=== PATIENT | female | born 1995 | race Caucasian/White ===

== ENCOUNTER 2019-05-20 05:45 | Emergency (ER) | payer BC ==
[~2019-05-20] VITALS: Ht 172.7 cm; Wt 141.5 kg
[2019-05-20] MEDS ORDERED: HYDR-643 PO (05:51)
[2019-05-20] MEDS ORDERED: HYDR-3363 PO (05:51)
[2019-05-20 07:57] LABS: BASO % 0.5 % (0.0-1.0); EOS # 0.1 10^3/uL (0.0-0.5); HEMATOCRIT 42.9 % (36.0-47.0); HEMOGLOBIN 14.3 g/dl (12.0-15.5); LYMPH # 2.8 10^3/uL (1.5-5.0); LYMPH % 35.4 % (24.0-44.0); MEAN CORPUSCULAR HGB CONC 33.3 g/dl (32.0-36.5); MONO # 0.5 10^3/uL (0.0-0.8); MONO % 5.9 % (0.0-5.0); NEUTROPHILS # 4.5 10^3/uL (1.5-8.5); NEUTROPHILS % 57.1 % (36.0-66.0); PLATELET COUNT, AUTOMATED 305 10^3/uL (150-450); RED BLOOD COUNT 5.11 10^6/uL (4.00-5.40); WHITE BLOOD COUNT 7.9 10^3/uL (4.0-10.0)
[2019-05-20 08:16] LABS: ALBUMIN 3.9 GM/DL (3.2-5.2); ALT/SGPT 20 U/L (12-78); AMYLASE 59 U/L (25-115); BILIRUBIN,DIRECT < 0.1 MG/DL (0.0-0.2); BILIRUBIN,TOTAL 0.4 MG/DL (0.2-1.0); BLOOD UREA NITROGEN 11 MG/DL (7-18); CALCIUM LEVEL 8.6 MG/DL (8.5-10.1); CARBON DIOXIDE LEVEL 25 MEQ/L (21-32); CHLORIDE LEVEL 108 MEQ/L (98-107); CREATININE FOR GFR 0.72 MG/DL (0.55-1.30); GLOMERULAR FILTRATION RATE > 60.0 (>60); GLUCOSE, FASTING 101 MG/DL (70-100); LIPASE 122 U/L (73-393); SODIUM LEVEL 140 MEQ/L (136-145)
--- NOTE | 2019-05-20 08:35 | REP ---
Abdominal right recorder ultrasound for right upper quadrant pain and biliary colic: There are multiple mobile gallbladder calculi. There is no gallbladder wall thickening or pericholecystic fluid. There is no intrahepatic or extrahepatic biliary duct dilatation. The common biliary duct measures 3.9 ml in diameter. The hepatic parenchyma is homogeneous and otherwise unremarkable. The visualized pancreatic parenchyma is unremarkable. Portions of the pancreas are obscured by bowel gas. The right kidney measures 11.3 x 4.9 x 3.3 cm and is normal size. There is no right renal calculus or hydronephrosis. There is no right renal solid or cystic mass. There is a right upper quadrant ascites. Impression: Cholelithiasis without ultrasound evidence of acute cholecystitis. No biliary duct dilatation. Electronically Signed by Andres Brock MD 05/20/2019 08:26 A
[2019-05-20] MEDS ORDERED: ONDA4TAB6 PO (09:34)
[2019-05-20 09:44] VITALS: BP 123/80
== END 2019-05-20 09:54 | disposition home or self-care (01) ==
LOC: M ED 05:45
DX: K80.50 Calculus of bile duct without cholangitis or cholecystitis without obstruction (principal); R11.2 Nausea with vomiting, unspecified; Z88.0 Allergy status to penicillin

== ENCOUNTER 2019-11-07 16:11 | Emergency (ER) | payer SELFPAY ==
[~2019-11-07] VITALS: Ht 172.7 cm; Wt 137.2 kg
[~2019-11-07 16:11] MED LIST: HYDR-3363 PO; HYDR-643 PO; ONDA4TAB6 PO
[2019-11-07 17:35] LABS: BASO % 0.5 % (0.0-1.0); EOS # 0.2 10^3/uL (0.0-0.5); EOS % 3.8 % (0.0-3.0); HEMATOCRIT 43.2 % (36.0-47.0); HEMOGLOBIN 14.2 g/dl (12.0-15.5); LYMPH # 2.1 10^3/uL (1.5-5.0); LYMPH % 33.3 % (24.0-44.0); MEAN CORPUSCULAR HEMOGLOBIN 28.1 pg (27.0-33.0); MEAN CORPUSCULAR HGB CONC 32.9 g/dl (32.0-36.5); MEAN CORPUSCULAR VOLUME 85.4 fl (80.0-96.0); MONO # 0.5 10^3/uL (0.0-0.8); MONO % 8.5 % (0.0-5.0); NEUTROPHILS # 3.4 10^3/uL (1.5-8.5); NEUTROPHILS % 53.7 % (36.0-66.0); PLATELET COUNT, AUTOMATED 368 10^3/uL (150-450); RED BLOOD COUNT 5.06 10^6/uL (4.00-5.40); WHITE BLOOD COUNT 6.3 10^3/uL (4.0-10.0)
[2019-11-07 17:57] LABS: ALT/SGPT 32 U/L (12-78); BILIRUBIN,DIRECT 0.1 MG/DL (0.0-0.2); BILIRUBIN,TOTAL 0.4 MG/DL (0.2-1.0); BLOOD UREA NITROGEN 7 MG/DL (7-18); CALCIUM LEVEL 9.7 MG/DL (8.5-10.1); CARBON DIOXIDE LEVEL 28 MEQ/L (21-32); CHLORIDE LEVEL 107 MEQ/L (98-107); GLOMERULAR FILTRATION RATE > 60.0 (>60); GLUCOSE, FASTING 87 MG/DL (70-100); LIPASE 92 U/L (73-393); POTASSIUM SERUM 4.3 MEQ/L (3.5-5.1); SODIUM LEVEL 141 MEQ/L (136-145); TOTAL PROTEIN 7.2 GM/DL (6.4-8.2)
--- NOTE | 2019-11-07 19:17 | REPVR ---
PROCEDURE INFORMATION: Exam: US Abdomen, Limited; Right Upper Quadrant Exam date and time: 11/07/2019 6:50 PM Age: 24 years old Clinical indication: Abdominal pain; Additional info: Ruq pain and a HX of gallstones TECHNIQUE: Imaging protocol: US abdomen. Real time ultrasound with image documentation. Limited exam focused on the right upper quadrant. COMPARISON: GALLBLADDER US 05/20/2019 8:08 AM FINDINGS: Liver: The echogenicity of the liver is within normal limits. No liver lesion is identified from the images obtained. The contour of the liver is smooth. Gallbladder: There is biliary sludge and echogenic foci within the gallbladder, which represent gallstones. No pericholecystic fluid is noted. There is no thickening wall of gallbladder. No sonographic Rosales's sign was reported by the instructional design technologist. Common bile duct: The common bile duct is dilated and measures 10 mm in diameter. There are echogenic foci in the common bile duct, which represent calculi. Pancreas: The visualized portion of the pancreas is unremarkable. The pancreas is partially obscured by gas in the stomach and bowel. Right kidney: The right kidney is normal in appearance and measures 12.2 cm in length. There is no renal cortical thinning. The renal cortical echogenicity is within normal limits. No renal lesion is seen. There is no hydronephrosis. No obvious stones are seen in the renal collecting system. Intraperitoneal space: No free fluid is seen from the images obtained. IMPRESSION: 1. Cholelithiasis. No sonographic evidence for cholecystitis. 2. Dilated common bile duct (10 mm) and choledocholithiasis. Electronically signed by: Juan De La Rosa On 11/07/2019 19:17:17 PM
[2019-11-08 04:08] VITALS: BP 137/82
== END 2019-11-08 04:10 | disposition short-term general hospital (02) ==
LOC: M ED 16:11
DX: K80.50 Calculus of bile duct without cholangitis or cholecystitis without obstruction (principal); K83.8 Other specified diseases of biliary tract; Z88.0 Allergy status to penicillin

== ENCOUNTER 2019-11-30 19:34 | Emergency (ER) | payer MEDICAID, SELFPAY ==
[~2019-11-30 19:34] MED LIST changes: +KETOROLAC 30 MG/ML 1ML VIAL ONE; +ONDANSETRON 4MG/2ML VIAL ONE
[2020-01-02 12:04] LABS: APPEARANCE, URINE HAZY (CLEAR); BACTERIA, URINE AUTO NEGATIVE (NEGATIVE); BILIRUBIN, URINE AUTO NEGATIVE (NEGATIVE); BLOOD, URINE BLOOD NEGATIVE (NEGATIVE); COLOR, URINE YELLOW (YELLOW); GLUCOSE, URINE (UA) AUTO NEGATIVE (NEGATIVE); KETONE, URINE AUTO 1+ mg/dL (NEGATIVE); LEUKOCYTE ESTERASE, URINE AUTO 2+ (NEGATIVE); MUCUS, URINE SMALL (NEGATIVE); NITRITE, URINE AUTO NEGATIVE (NEGATIVE); PROTEIN, URINE AUTO NEGATIVE (NEGATIVE); RBC, URINE AUTO 3 /HPF (0-3); SPECIFIC GRAVITY URINE AUTO 1.021 (1.002-1.035); SQUAMOUS EPITHELIAL CELL UR AU 3 /HPF (0-6); UROBILINOGEN, URINE AUTO 0.2 mg/dL (0.0-2.0); WBC, URINE AUTO 5 /HPF (0-3)
[2020-01-02 14:37] LABS: BASO % 0.2 % (0.0-1.0); EOS # 0.2 10^3/uL (0.0-0.5); EOS % 1.5 % (0.0-3.0); HEMATOCRIT 45.3 % (36.0-47.0); HEMOGLOBIN 14.7 g/dl (12.0-15.5); LYMPH # 2.3 10^3/uL (1.5-5.0); LYMPH % 19.2 % (24.0-44.0); MEAN CORPUSCULAR HEMOGLOBIN 27.9 pg (27.0-33.0); MEAN CORPUSCULAR HGB CONC 32.5 g/dl (32.0-36.5); MONO # 0.8 10^3/uL (0.0-0.8); MONO % 6.3 % (0.0-5.0); NEUTROPHILS # 8.7 10^3/uL (1.5-8.5); NEUTROPHILS % 72.5 % (36.0-66.0); PLATELET COUNT, AUTOMATED 340 10^3/uL (150-450); RED BLOOD COUNT 5.27 10^6/uL (4.00-5.40); WHITE BLOOD COUNT 11.9 10^3/uL (4.0-10.0)
[2020-01-19 23:12] LABS: ALBUMIN 4.4 GM/DL (3.2-5.2); ALT/SGPT 25 IU/L (0-32); BILIRUBIN,TOTAL 0.8 MG/DL (0.2-1.0); BLOOD UREA NITROGEN 6 MG/DL (7-18); CALCIUM LEVEL 9.5 MG/DL (8.5-10.1); CARBON DIOXIDE LEVEL 27 mmol/L (20-29); CHLORIDE LEVEL 104 MEQ/L (98-107); CREATININE FOR GFR 0.63 MG/DL (0.55-1.30); GLOMERULAR FILTRATION RATE > 60.0 (>60); GLUCOSE, FASTING 102 MG/DL (70-100); LIPASE 67 U/L (73-393); POTASSIUM SERUM 4.1 MEQ/L (3.5-5.1); SODIUM LEVEL 138 MEQ/L (136-145); TOTAL PROTEIN 7.5 GM/DL (6.4-8.2)
[2020-01-19 23:13] LABS: HCG, SERUM QUALITATIVE NEGATIVE (NEGATIVE)
== END 2019-11-30 20:14 | disposition home or self-care (01) ==
LOC: M ED 19:34
DX: K80.20 Calculus of gallbladder without cholecystitis without obstruction (principal); E66.9 Obesity, unspecified; K76.0 Fatty (change of) liver, not elsewhere classified; Z88.0 Allergy status to penicillin
CPT/HCPCS: 76705; 80053; 81001; 83690; 84703; 85025; 87086; 96361; 96374; 96375; 99284; J1885; J2405

== ENCOUNTER 2019-12-01 18:10 | Inpatient (IN) | payer MEDICAID, SELFPAY ==
[~2019-12-01 18:10] MED LIST changes: -KETOROLAC 30 MG/ML 1ML VIAL ONE; -ONDANSETRON 4MG/2ML VIAL ONE
[2019-12-01] MEDS ORDERED: MORPHINE 4 MG/ML 1ML VIAL/SYRINGE (J2270) ONE ×2 (18:54→20:41)
[2019-12-01] MEDS ORDERED: MORPHINE 4 MG/ML 1ML VIAL/SYRINGE (J2270) As Ordered ONE ×2 (18:54→20:41)
[2019-12-01] MEDS ORDERED: ONDANSETRON 4MG/2ML VIAL As Ordered ONE (18:54)
[2019-12-01] MEDS ORDERED: ONDANSETRON 4MG/2ML VIAL ONE (18:54)
[2019-12-01] MEDS ORDERED: KETOROLAC 30 MG/ML 1ML VIAL As Ordered ONE (23:16)
[2019-12-01] MEDS ORDERED: KETOROLAC 30 MG/ML 1ML VIAL ONE (23:16)
[2019-12-02] MEDS ORDERED: MORPHINE 4 MG/ML 1ML VIAL/SYRINGE (J2270) As Ordered ONE ×3 (00:32→08:44)
[2019-12-02] MEDS ORDERED: UNASYN 3 GM VIAL As Ordered ONE ×3 (00:35→18:19)
[2019-12-02] MEDS ORDERED: UNASYN 3 GM VIAL ONE (00:35)
[2019-12-02] MEDS ORDERED: ACETAMINOPHEN 325 MG TAB ONE (00:35)
[2019-12-02] MEDS ORDERED: ACETAMINOPHEN 325 MG TAB As Ordered ONE (00:59)
[2019-12-02] MEDS ORDERED: ENOXAPARIN 40MG/0.4ML SYRINGE (J1650 PER 10MG) As Ordered ONE (10:26)
[2019-12-02] MEDS ORDERED: metroNIDAZOLE/NACL 500MG(5MG/ML) 100ML BAG (S0030) ONE ×2 (11:00→21:00)
[2019-12-02] MEDS ORDERED: ONDANSETRON 4MG/2ML VIAL As Ordered ONE ×3 (11:54→13:21)
[2019-12-02] MEDS ORDERED: LIDOCAINE 2% 100MG/5ML SDV (FOR ANES.) As Ordered ONE ×2 (12:08→13:21)
[2019-12-02] MEDS ORDERED: ROCURONIUM BROMIDE 50 MG/5 ML VIAL As Ordered ONE ×3 (12:08→13:30)
[2019-12-02] MEDS ORDERED: KETOROLAC 60MG 2ML VIAL As Ordered ONE ×2 (12:08→13:21)
[2019-12-02] MEDS ORDERED: dexameTHASONE 4 MG/ML 1ML VIAL (J1100 PER 1MG) As Ordered ONE ×2 (12:08→13:21)
[2019-12-02] MEDS ORDERED: propofoL 200 MG/20 ML VIAL As Ordered ONE ×3 (12:08→13:30)
[2019-12-02] MEDS ORDERED: MIDAZOLAM INJ 2MG/2ML VIAL (J2250 PER 1MG) As Ordered ONE ×2 (12:08→13:22)
[2019-12-02] MEDS ORDERED: fentaNYL 100 MCG/2 ML INJECTION (J3010) As Ordered ONE ×2 (12:08→13:23)
[2019-12-02] MEDS ORDERED: BUPIVACAINE HCL 0.25% 30ML VIAL As Ordered ONE (12:43)
[2019-12-02] MEDS ORDERED: LIDOCAINE 1% SDV 30ML VIAL As Ordered ONE (12:43)
[2019-12-02] MEDS ORDERED: UNASYN 1.5 GM VIAL As Ordered ONE (13:00)
[2019-12-02] MEDS ORDERED: HYDROmorphone HCL 2 MG/ML 1ML VIAL (J1170) As Ordered ONE ×2 (13:01→13:23)
[2019-12-02] MEDS ORDERED: METOCLOPRAMIDE INJ 10MG/2ML VIAL (J2765 PER 1) As Ordered ONE (13:21)
[2019-12-02] MEDS ORDERED: SUGAMMADEX SODIUM 500 MG/5 ML VIAL (BRIDION) As Ordered ONE (15:12)
[2019-12-02] MEDS ORDERED: PERCOCET 5MG/325MG TAB As Ordered ONE (18:25)
[2019-12-02] MEDS ORDERED: metroNIDAZOLE/NACL 500MG(5MG/ML) 100ML BAG (S0030) As Ordered ONE (19:26)
[2019-12-03] MEDS ORDERED: KETOROLAC 30 MG/ML 1ML VIAL As Ordered ONE ×4 (00:23→21:54)
[2019-12-03] MEDS ORDERED: UNASYN 3 GM VIAL As Ordered ONE ×4 (00:23→18:39)
[2019-12-03] MEDS ORDERED: PERCOCET 5MG/325MG TAB As Ordered ONE ×4 (00:44→18:39)
[2019-12-03] MEDS ORDERED: metroNIDAZOLE/NACL 500MG(5MG/ML) 100ML BAG (S0030) As Ordered ONE ×3 (03:41→19:30)
[2019-12-03] MEDS ORDERED: ENOXAPARIN 40MG/0.4ML SYRINGE (J1650 PER 10MG) As Ordered ONE (08:59)
[2019-12-04] MEDS ORDERED: UNASYN 3 GM VIAL As Ordered ONE ×2 (01:14→06:17)
[2019-12-04] MEDS ORDERED: PERCOCET 5MG/325MG TAB As Ordered ONE ×3 (01:37→10:37)
[2019-12-04] MEDS ORDERED: metroNIDAZOLE/NACL 500MG(5MG/ML) 100ML BAG (S0030) As Ordered ONE (02:54)
[2019-12-04] MEDS ORDERED: KETOROLAC 30 MG/ML 1ML VIAL As Ordered ONE (04:13)
[2020-01-04 11:45] LABS: AMORPHOUS SEDIMENT MODERATE (NEGATIVE); APPEARANCE, URINE TURBID (CLEAR); BACTERIA, URINE AUTO 1+ (NEGATIVE); BILIRUBIN, URINE AUTO NEGATIVE (NEGATIVE); BLOOD, URINE BLOOD 3+ (NEGATIVE); COLOR, URINE YELLOW (YELLOW); GLUCOSE, URINE (UA) AUTO NEGATIVE (NEGATIVE); KETONE, URINE AUTO 2+ mg/dL (NEGATIVE); LEUKOCYTE ESTERASE, URINE AUTO 2+ (NEGATIVE); MUCUS, URINE MODERATE (NEGATIVE); NITRITE, URINE AUTO NEGATIVE (NEGATIVE); PROTEIN, URINE AUTO 2+ mg/dL (NEGATIVE); RBC, URINE AUTO 137 /HPF (0-3); SQUAMOUS EPITHELIAL CELL UR AU 4 /HPF (0-6); UROBILINOGEN, URINE AUTO 0.2 mg/dL (0.0-2.0); WBC, URINE AUTO TNTC /HPF (0-3)
[2020-01-05 09:00] LABS: BASO % 0.2 % (0.0-1.0); EOS % 0.1 % (0.0-3.0); HEMATOCRIT 39.8 % (36.0-47.0); HEMOGLOBIN 13.3 g/dl (12.0-15.5); LYMPH # 1.1 10^3/uL (1.5-5.0); MEAN CORPUSCULAR HEMOGLOBIN 28.1 pg (27.0-33.0); MEAN CORPUSCULAR HGB CONC 33.4 g/dl (32.0-36.5); MEAN CORPUSCULAR VOLUME 84.1 fl (80.0-96.0); MONO # 1.1 10^3/uL (0.0-0.8); MONO % 5.9 % (0.0-5.0); NEUTROPHILS # 15.9 10^3/uL (1.5-8.5); NEUTROPHILS % 87.5 % (36.0-66.0); PLATELET COUNT, AUTOMATED 332 10^3/uL (150-450); RED BLOOD COUNT 4.73 10^6/uL (4.00-5.40); WHITE BLOOD COUNT 18.1 10^3/uL (4.0-10.0)
[2020-01-16 11:18] LABS: ALBUMIN 4.4 GM/DL (3.2-5.2); ALT/SGPT 31 U/L (12-78); BILIRUBIN,DIRECT 0.3 MG/DL (0.0-0.2); BILIRUBIN,TOTAL 0.9 MG/DL (0.2-1.0); BLOOD UREA NITROGEN 6 MG/DL (7-18); CALCIUM LEVEL 9.3 MG/DL (8.5-10.1); CARBON DIOXIDE LEVEL 24 MEQ/L (21-32); CHLORIDE LEVEL 105 MEQ/L (98-107); CREATININE FOR GFR 0.75 MG/DL (0.55-1.30); GLOMERULAR FILTRATION RATE > 60.0 (>60); GLUCOSE, FASTING 133 MG/DL (70-100); LIPASE 101 U/L (73-393); POTASSIUM SERUM 4.2 MEQ/L (3.5-5.1); SODIUM LEVEL 138 MEQ/L (136-145); TOTAL PROTEIN 7.9 GM/DL (6.4-8.2)
[2020-01-16 11:19] LABS: HCG, SERUM QUALITATIVE NEGATIVE (NEGATIVE)
--- NOTE | 2020-01-23 14:06 | HPE ---
DATE OF ADMISSION: 12/01/2019 CHIEF COMPLAINT: Abdominal pain. HISTORY OF PRESENT ILLNESS: Ms. Crain is a 24-year-old female, otherwise healthy, with moderate obesity, who presented herself to the emergency room on 12/01/2019. The night prior she was also seen in the emergency room for similar complaints. She tells me she has been having about a two day history of epigastric and right upper quadrant discomfort, as well as nausea that happened all of a sudden, prompting the visit the nigh prior. She has a know history of gallstones; and back in October, she was diagnosed with choledocholithiasis, was transferred to [facility] for which she was watched shortly and it appears she passed her biliary stone then. She opted not to have her gallbladder removed at that time due to insurance issues and has been watching her diet. She has been fairly asymptomatic up until the current episode. She was seen by Dr. Ortega in the morning and was actually scheduled to have her gallbladder removed next week. When she got home, she ate and had increased pain and vomiting then she went to the emergency room. She denies any fevers or chills. PAST MEDICAL HISTORY: Just obesity, she denies any sleep apnea, she denies any diabetes or high blood pressure. PAST SURGICAL HISTORY: Tonsillectomy. REVIEW OF SYSTEMS: The patient was, prior to two days ago, well. She does report some 30 pound weight loss, she was voluntarily watching her diet. She reports some nausea. Denies fevers or chills. Denies any chest pain. Denies any shortness of breath on effort. Denies any dysuria. Denies any history of diabetes, sleep apnea, denies any bleeding problem disorder. PHYSICAL EXAMINATION: She is afebrile in the emergency room, otherwise she was hemodynamically stable at the time that I saw her. In the emergency department (ED), she looks mildly uncomfortable. Was able to sit up on the bed, more discomfort when she lays down. Skin is warm and dry. Normocephalic, atraumatic. Anicteric sclerae. Lips appear mildly dry. She has a short supple neck. Lung sounds are clear to auscultation bilaterally without wheezing. Heart: Rate and rhythm are regular without murmurs. Abdomen is obese. Mildly distended but soft. No noticeable herniations. No prior abdominal scars. She is tender over her right upper quadrant area with mild guarding, consistent with Rosales sign. Slight radiation to the midline. She is nontender everywhere else. No significant extremity edema. LABORATORY: Shows white cell count 18,000, hemoglobin 13.3, hematocrit 40, platelet count 332. Her electrolytes and liver function tests were normal. She had an ultrasound finding showing stone at the neck of the gallbladder. She had MRCP done also per my request and this did not demonstrate choledocholithiasis IMPRESSION AND PLAN: This 24-year-old female, moderate obesity with acute cholecystitis. We plan to bring her to the operating for laparoscopic cholecystectomy. She will be placed on antibiotics perioperatively. I will be using Unasyn and metronidazole. Length of stay is 12 hours, possibility of needing a drain or converting to open surgery with laparoscopy discussed with the patient consent has been obtained MTDD
--- NOTE | 2020-01-26 11:00 | RO ---
"DATE OF PROCEDURE: 12/02/2019 PREOPERATIVE DIAGNOSIS: 1. Acute cholecystitis. POSTOPERATIVE: 1. Gangrenous acute cholecystitis. PROCEDURE: Laparoscopic cholecystitis. SURGEON: Dr. Pedro DOVE: Stephanie (PGY1) ANESTHESIA: General anesthesia. ESTIMATED BLOOD LOSS: 100 ml. COMPLICATIONS: None. SPECIMENS: Gallbladder. DRAINS: 19 Josue drain to gallbladder fossa. PROCEDURE NOTE: Ms. Crain is a 24-year-old female morbidly obese admitted to through emergency room with about a four day history of ongoing abdominal pain, has had prior gallbladder problems, attempted passage of a common bile duct stone last month. Had initially opted to not undergo surgery, but was in severe pain, subsequently admitted for cholecystitis. She has been receiving Unasyn 3 gm IV every 6 hours, as well as metronidazole 500 mg IV every 8 hours for the cholecystitis. This was continued perioperatively. She was brought to the operating room, laid supine on the operating table, compression was placed on both lower extremities for deep venous thrombosis (DVT) prophylaxis. General endotracheal anesthesia was started. Her abdomen prepped and draped in the usual sterile fashion. Her left arm was tucked. The surgical time out was performed prior to the start of the surgery. We entered the abdomen about 4 cm above the umbilicus and entry done through small incision and a Veress needle technique used. Intraabdominal placement confirmed with |hanging drop technique. Co2 inflation started to a pressure of 15 mmHg. Using the same incision, a 5 mm port was placed under direct vision of the laparoscope. The patient has a very thick subcutaneous pannus and eventually I would change this to a bariatric port. Once entry to the abdomen was done, the site was inspected for injury, none was found. She was placed in steep Trendelenburg position and right side tilted upwards to further expose the gallbladder. On initial examination, the gallbladder is covered with omentum that is mildly inflamed. I did not immediately see any ascitic fluid; most of the bowel was covered with omentum. Liver is mildly enlarged, but relatively healthy and smooth. The other parts were placed under direct vision including a 10 mm epigastric port and two 5 mm ports along the right subcostal area, one at the midclavicular and one at the anterior axillary line. As mentioned, I converted the supraumbilical trocar to a bariatric port to allow for better use of the laparoscope. I initially used the 5 mm third degree laparoscope, but later on would convert to a 10 mm third degree laparoscope by upsizing the trocar to 12 mm bariatric trocar because we are having problems with adequate visualization for light penetration at the area. The omentum was blunted dissected peeling towards the gallbladder revealing distended necrotic wall of the gallbladder, but no gross perforation, there some hemorrhagic ascites surrounding it and gallbladder pericholecystic wall edema consistent with gangrenous cholecystitis. An aspirating needle was used to decompress the gallbladder with hemorrhagic fluid being removed. The fundus of the gallbladder was grasped and this was elevated superiorly continuing the blunt dissection to free up the gallbladder surrounding omentum and duodenal hepatic ligaments. Mostly did my initial dissection bluntly dissecting the peritoneum circumferentially at about the lower body neck of the gallbladder. The hepatocystic lymph node was pretty prominent. There were adhered swollen adiposities surrounding the area. Seems to tether the duodenum close by, so I initially decided to go to partial top down approach. The peritoneum overlying the fundus was taken down and I went inferiorly to partially free up the dome of the gallbladder to allow me to further retract the fundus superiorly before I expose the septum duct. I continued mostly with the blunt dissection where the laparoscopic peanuts or laparoscopic Kittners going medially and posteriorly, which easy kind of breaks away. The duodenum likewise. The course of the common bile duct seems nearby, so I refrain from using energy in this area. I also dissected the lower body of the cystic plate laterally freeing up the peritoneal attachments from it to further be able to retract the gallbladder. The course of the cystic duct seems to be slightly deviated laterally with the gallbladder being twisted anterolaterally. The infundibulum was more posterior in its location where the cystic duct is more anteriorly and its location is pretty fibrotic and hard. There is also a fairly large maybe a 1.5 cm, 2 cm stone, which makes grabbing the gallbladder difficult. Eventually, I was able to create a posterior window and I slowly went around the posterior wall of the gallbladder bringing this off the cystic plate. Also using the prominent hepatocystic lymph node, I dissected this off the cystic artery from underneath it and followed its course up at the lower body going towards the hepatocystic triangle. The course of the artery was pretty well intimate to the cystic duct with thick fibrotic attachments and eventually was able to get around it. was able to get a critical view of safety as I pretty much dissected the posterior wall of the gallbladder and only the intimately fused cystic duct and artery was coursing to the gallbladder. I have taken the cystic artery up high and slowly peeled this off the cystic duct and was able to circumferentially free up the cystic duct enough to accommodate the 10 mm hemoclips. I massaged any content upwards to the gallbladder and three clips were placed at the cystic duct site and one to the gallbladder site and the cystic duct was divided. The rest of the gallbladder was then dissected off the liver bed, which was pretty fibrotic also. The gallbladder was then detached, delivered through the epigastric ports, which I had enlarged to accommodate the inflamed gallbladder and large stone. Once this was done, the abdomen was thoroughly irrigated. I visualized the clips, likewise the liver bed, which was cauterized some, but the lateral parts of the capsule was not oozing. Once there was adequate hemostasis and clips were noted to be placed, I did not see any evidence of bile leakage. I left a 19 Josue drain. The abdomen was then deflated. The two 12 mm and 10 mm ports were closed with 1Vicryl using Kevon-Inocencio device. All skin incisions closed with 4-0 monochrome subcuticular sutures. The drain was secured to the skin. The patient was promptly awaken, extubated and brought to the recovery room in stable condition. SAILAJA"
[2020-01-29 06:48] LABS: BASO % 0.2 % (0.0-1.0); EOS % 0.1 % (0.0-3.0); HEMATOCRIT 45.3 % (36.0-47.0); HEMOGLOBIN 14.8 g/dl (12.0-15.5); LYMPH # 1.4 10^3/uL (1.5-5.0); LYMPH % 9.6 % (24.0-44.0); MEAN CORPUSCULAR HEMOGLOBIN 28.3 pg (27.0-33.0); MEAN CORPUSCULAR HGB CONC 32.7 g/dl (32.0-36.5); MEAN CORPUSCULAR VOLUME 86.6 fl (80.0-96.0); MONO # 1.5 10^3/uL (0.0-0.8); NEUTROPHILS # 11.8 10^3/uL (1.5-8.5); NEUTROPHILS % 79.7 % (36.0-66.0); PLATELET COUNT, AUTOMATED 338 10^3/uL (150-450); RED BLOOD COUNT 5.23 10^6/uL (4.00-5.40); WHITE BLOOD COUNT 14.8 10^3/uL (4.0-10.0)
[2020-01-29 18:14] LABS: BASO % 0.2 % (0.0-1.0); EOS % 0.1 % (0.0-3.0); HEMATOCRIT 37.8 % (36.0-47.0); HEMOGLOBIN 12.3 g/dl (12.0-15.5); LYMPH # 1.5 10^3/uL (1.5-5.0); LYMPH % 12.2 % (24.0-44.0); MEAN CORPUSCULAR HEMOGLOBIN 28.1 pg (27.0-33.0); MEAN CORPUSCULAR HGB CONC 32.5 g/dl (32.0-36.5); MEAN CORPUSCULAR VOLUME 86.3 fl (80.0-96.0); MONO # 1.1 10^3/uL (0.0-0.8); MONO % 9.1 % (0.0-5.0); NEUTROPHILS # 9.8 10^3/uL (1.5-8.5); NEUTROPHILS % 78.1 % (36.0-66.0); PLATELET COUNT, AUTOMATED 314 10^3/uL (150-450); RED BLOOD COUNT 4.38 10^6/uL (4.00-5.40); WHITE BLOOD COUNT 12.6 10^3/uL (4.0-10.0)
[2020-02-14 10:13] LABS: BASO % 0.2 % (0.0-1.0); EOS # 0.1 10^3/uL (0.0-0.5); EOS % 1.5 % (0.0-3.0); HEMATOCRIT 36.7 % (36.0-47.0); HEMOGLOBIN 11.9 g/dl (12.0-15.5); LYMPH # 2.2 10^3/uL (1.5-5.0); LYMPH % 26.3 % (24.0-44.0); MEAN CORPUSCULAR HEMOGLOBIN 28.1 pg (27.0-33.0); MEAN CORPUSCULAR HGB CONC 32.4 g/dl (32.0-36.5); MEAN CORPUSCULAR VOLUME 86.6 fl (80.0-96.0); MONO # 0.6 10^3/uL (0.0-0.8); MONO % 6.7 % (0.0-5.0); NEUTROPHILS # 5.4 10^3/uL (1.5-8.5); NEUTROPHILS % 64.9 % (36.0-66.0); PLATELET COUNT, AUTOMATED 326 10^3/uL (150-450); RED BLOOD COUNT 4.24 10^6/uL (4.00-5.40); WHITE BLOOD COUNT 8.3 10^3/uL (4.0-10.0)
[2020-02-19 08:18] LABS: ALBUMIN 2.8 GM/DL (3.2-5.2); ALT/SGPT 50 U/L (12-78); BILIRUBIN,TOTAL 0.5 MG/DL (0.2-1.0); BLOOD UREA NITROGEN 12 MG/DL (7-18); CALCIUM LEVEL 8.2 MG/DL (8.5-10.1); CARBON DIOXIDE LEVEL 30 MEQ/L (21-32); CHLORIDE LEVEL 104 MEQ/L (98-107); CREATININE FOR GFR 0.54 MG/DL (0.55-1.30); GLOMERULAR FILTRATION RATE > 60.0 (>60); GLUCOSE, FASTING 93 MG/DL (70-100); POTASSIUM SERUM 3.4 MEQ/L (3.5-5.1); SODIUM LEVEL 139 MEQ/L (136-145); TOTAL PROTEIN 5.8 GM/DL (6.4-8.2)
[2020-02-26 05:00] LABS: ALBUMIN 3.5 GM/DL (3.2-5.2); ALT/SGPT 51 U/L (12-78); BILIRUBIN,TOTAL 1.4 MG/DL (0.2-1.0); BLOOD UREA NITROGEN 6 MG/DL (7-18); CALCIUM LEVEL 8.9 MG/DL (8.5-10.1); CARBON DIOXIDE LEVEL 27 MEQ/L (21-32); CHLORIDE LEVEL 106 MEQ/L (98-107); CREATININE FOR GFR 0.76 MG/DL (0.55-1.30); GLOMERULAR FILTRATION RATE > 60.0 (>60); GLUCOSE, FASTING 149 MG/DL (70-100); POTASSIUM SERUM 3.8 MEQ/L (3.5-5.1); SODIUM LEVEL 140 MEQ/L (136-145); TOTAL PROTEIN 6.9 GM/DL (6.4-8.2)
[2020-02-26 11:12] LABS: ALBUMIN 2.9 GM/DL (3.2-5.2); ALT/SGPT 59 U/L (12-78); BILIRUBIN,TOTAL 0.8 MG/DL (0.2-1.0); BLOOD UREA NITROGEN 10 MG/DL (7-18); CALCIUM LEVEL 8.2 MG/DL (8.5-10.1); CARBON DIOXIDE LEVEL 29 MEQ/L (21-32); CHLORIDE LEVEL 106 MEQ/L (98-107); CREATININE FOR GFR 0.59 MG/DL (0.55-1.30); GLOMERULAR FILTRATION RATE > 60.0 (>60); GLUCOSE, FASTING 108 MG/DL (70-100); POTASSIUM SERUM 3.8 MEQ/L (3.5-5.1); SODIUM LEVEL 140 MEQ/L (136-145); TOTAL PROTEIN 5.9 GM/DL (6.4-8.2)
== END 2019-12-03 10:15 | disposition home or self-care (01) | DRG 263 ==
LOC: M ED 18:10 → M MS5PR 22:05
PROVIDERS: ADMIT Surgery; ATTEND Surgery
PROC: 0FT44ZZ Resection of Gallbladder, Percutaneous Endoscopic Approach (ICD-10-PCS; principal; 2019-12-02)
DX: K81.0 Acute cholecystitis (principal); E66.9 Obesity, unspecified

== ENCOUNTER → 2020-12-06 | Outpatient (CLI) | payer OTHER ==
[~2020-12-06] MED LIST changes: +MAXA10TA14
[2020-12-06 13:37] LABS: BASO % 0.5 % (0.0-1.0); EOS # 0.1 10^3/uL (0.0-0.5); EOS % 2.2 % (0.0-3.0); HEMATOCRIT 43.5 % (36.0-47.0); HEMOGLOBIN 14.3 g/dl (12.0-15.5); LYMPH % 32.8 % (24.0-44.0); MEAN CORPUSCULAR HEMOGLOBIN 28.3 pg (27.0-33.0); MEAN CORPUSCULAR HGB CONC 32.9 g/dl (32.0-36.5); MEAN CORPUSCULAR VOLUME 86.1 fl (80.0-96.0); MONO # 0.4 10^3/uL (0.0-0.8); MONO % 6.2 % (2.0-8.0); NEUTROPHILS # 3.5 10^3/uL (1.5-8.5); NEUTROPHILS % 58.1 % (36.0-66.0); PLATELET COUNT, AUTOMATED 378 10^3/uL (150-450); RED BLOOD COUNT 5.05 10^6/uL (4.00-5.40)
[2020-12-06 14:02] LABS: ALT/SGPT 33 U/L (12-78); BILIRUBIN,TOTAL 0.5 MG/DL (0.2-1.0); BLOOD UREA NITROGEN 10 MG/DL (7-18); CALCIUM LEVEL 9.2 MG/DL (8.5-10.1); CARBON DIOXIDE LEVEL 27 MEQ/L (21-32); CHLORIDE LEVEL 110 MEQ/L (98-107); CREATININE FOR GFR 0.59 MG/DL (0.55-1.30); GLOMERULAR FILTRATION RATE > 60.0 (>60); GLUCOSE, FASTING 99 MG/DL (70-100); POTASSIUM SERUM 4.3 MEQ/L (3.5-5.1); RHEUMATOID FACTOR QUANT < 10.0 IU/ML (<15.0); SODIUM LEVEL 140 MEQ/L (136-145); THYROXINE (T4) 9.6 UG/DL (4.5-12.0); TOTAL PROTEIN 6.6 GM/DL (6.4-8.2)
[2020-12-06 14:06] LABS: THYROGLOBULIN ANTIBODY < 15.0 U/ML (<60.0); THYROID PEROXIDASE ANTIBODY 236.8 U/ML (<60.0)
[2020-12-06 14:54] LABS: ERYTHROCYTE SEDIMENTATION RATE 4 mm/hr (0-20)
[2020-12-11 18:10] LABS: ANTINUCLEAR ANTIBODIES DIRECT Negative (Negative); IGE RECEPTOR ABY 1 4.9 (<10); TRYPTASE 6.6 ug/L (2.2-13.2)
== END ==
LOC: M LABDRWAD 09:55
PROVIDERS: ATTEND Allergy & Immunology Allergy
DX: L50.1 Idiopathic urticaria (principal); L50.3 Dermatographic urticaria

== ENCOUNTER 2020-12-08 12:37 | Emergency (ER) | payer OTHER ==
[~2020-12-08] VITALS: Ht 170.2 cm; Wt 139.5 kg
[~2020-12-08 12:37] MED LIST changes: -MAXA10TA14
[2020-12-08] MEDS ORDERED: MAXA10TA14 (12:46)
[2020-12-08] MEDS ORDERED: METOCLOPRAMIDE INJ 10MG/2ML VIAL (J2765 PER 1) IV ONE (14:35)
[2020-12-08] MEDS ORDERED: ACETAMINOPHEN 500 MG TAB PO ONE (14:35)
[2020-12-08] MEDS ORDERED: NS 1,000 ML IV ONE (14:35)
[2020-12-08 15:29] LABS: APPEARANCE, URINE HAZY (CLEAR); BACTERIA, URINE AUTO NEGATIVE (NEGATIVE); BILIRUBIN, URINE AUTO NEGATIVE (NEGATIVE); BLOOD, URINE BLOOD 3+ (NEGATIVE); COLOR, URINE YELLOW (YELLOW); GLUCOSE, URINE (UA) AUTO NEGATIVE (NEGATIVE); KETONE, URINE AUTO NEGATIVE (NEGATIVE); LEUKOCYTE ESTERASE, URINE AUTO 1+ (NEGATIVE); MUCUS, URINE SMALL (NEGATIVE); NITRITE, URINE AUTO NEGATIVE (NEGATIVE); PROTEIN, URINE AUTO NEGATIVE (NEGATIVE); RBC, URINE AUTO 41 /HPF (0-3); SPECIFIC GRAVITY URINE AUTO 1.021 (1.002-1.035); SQUAMOUS EPITHELIAL CELL UR AU 6 /HPF (0-6); UROBILINOGEN, URINE AUTO 0.2 mg/dL (0.0-2.0); WBC, URINE AUTO 7 /HPF (0-3)
[2020-12-08 15:30] LABS: BASO % 0.7 % (0.0-1.0); EOS # 0.1 10^3/uL (0.0-0.5); EOS % 1.4 % (0.0-3.0); HEMATOCRIT 42.7 % (36.0-47.0); LYMPH # 2.4 10^3/uL (1.5-5.0); LYMPH % 40.8 % (24.0-44.0); MEAN CORPUSCULAR HEMOGLOBIN 27.9 pg (27.0-33.0); MEAN CORPUSCULAR HGB CONC 32.8 g/dl (32.0-36.5); MEAN CORPUSCULAR VOLUME 85.1 fl (80.0-96.0); MONO # 0.3 10^3/uL (0.0-0.8); MONO % 5.9 % (2.0-8.0); PLATELET COUNT, AUTOMATED 175 10^3/uL (150-450); RED BLOOD COUNT 5.02 10^6/uL (4.00-5.40); WHITE BLOOD COUNT 5.8 10^3/uL (4.0-10.0)
[2020-12-08 15:41] LABS: BLOOD UREA NITROGEN 10 MG/DL (7-18); CARBON DIOXIDE LEVEL 16 MEQ/L (21-32); CHLORIDE LEVEL 120 MEQ/L (98-107); CREATININE FOR GFR 0.41 MG/DL (0.55-1.30); GLOMERULAR FILTRATION RATE > 60.0 (>60); GLUCOSE, FASTING 80 MG/DL (70-100); POTASSIUM SERUM 3.5 MEQ/L (3.5-5.1); SODIUM LEVEL 143 MEQ/L (136-145)
[2020-12-08 16:03] LABS: RSV AMPLIFICATION NEGATIVE (NEGATIVE)
[2020-12-08 16:03] LABS: ERYTHROCYTE SEDIMENTATION RATE 2 mm/hr (0-20)
--- NOTE | 2020-12-08 16:12 | REP ---
INDICATION: headache, left visual disturbances, fam hx MS COMPARISON: None. TECHNIQUE: Axial noncontrast images from the skull base to the vertex with coronal reformations. This CT examination was performed using the following dose reduction techniques: Automated exposure control, adjustment of mA and/or kv according to the patient's size, and use of iterative reconstruction technique. FINDINGS: The ventricles, sulci, and cisterns are normal in position and appearance. Prather-white differentiation is maintained. No acute intracranial hemorrhage, mass/mass effect, pathology or trauma/injury. No evidence for acute infarction. No extra-axial fluid collection. Calvarium is intact. Paranasal sinuses and mastoid air cells are clear. IMPRESSION: Normal noncontrast head CT. No evidence for acute intracranial pathology or trauma/injury. <Electronically signed by Moe Villegas > 12/08/20 [id number]
[2020-12-08] MEDS ORDERED: KETOROLAC 30 MG/ML 1ML VIAL IV ONE (16:20)
[2020-12-08 18:13] VITALS: BP 126/65
== END 2020-12-08 19:02 | disposition home or self-care (01) ==
LOC: M ED 12:37
DX: H53.8 Other visual disturbances (principal); G43.909 Migraine, unspecified, not intractable, without status migrainosus; F41.9 Anxiety disorder, unspecified; F32.9 Major depressive disorder, single episode, unspecified; Z88.0 Allergy status to penicillin
CPT/HCPCS: 36415; 70450; 80048; 81001; 84702; 85025; 85652; 86140; 87631; 96361; 96374; 96375; 99284; J1885; J2765

== ENCOUNTER → 2020-12-13 | Outpatient (CLI) | payer OTHER ==
[~2020-12-13] MED LIST changes: +MAXA10TA14
--- NOTE | 2020-12-13 18:37 | REPVR ---
PROCEDURE INFORMATION: Exam: MR Head Without Contrast Exam date and time: 12/13/2020 4:54 PM Age: 25 years old Clinical indication: Pain; Headache; With aura; Does not respond to medication; With migrainosus (>72 hrs & severe); Patient HX: Migraine w/ visual aura TECHNIQUE: Imaging protocol: MR of the head without contrast. COMPARISON: CT Head without contrast 12/08/2020 3:59 PM FINDINGS: Brain: There is no restricted diffusion to suggest acute infarction. No mass. No demyelinating plaques. No acute intracranial hemorrhage or prior microhemorrhages. Cerebral ventricles: No ventricular enlargement. Bones/joints: Unremarkable. Paranasal sinuses: There is a mucous retention cyst in the right maxillary antrum.The remainder of the paranasal sinuses appear clear. Mastoid air cells: Normal as visualized. No mastoid effusion. Orbital cavity: Unremarkable. Soft tissues: Unremarkable. Other vasculature: Flow is seen in the major intracerebral arteries. IMPRESSION: No acute findings. Electronically signed by: Jennifer Her On 12/13/2020 18:37:15 PM
== END ==
LOC: M RAD 13:52
PROVIDERS: ATTEND Physician Assistant Medical
DX: G43.109 Migraine with aura, not intractable, without status migrainosus (principal)

== ENCOUNTER → 2020-12-27 | Outpatient (CLI) | payer OTHER ==
--- NOTE | 2020-12-27 15:29 | REP ---
INDICATION: THYROIDITIS. COMPARISON: None. TECHNIQUE: Real-time sonographic evaluation of thyroid performed. FINDINGS: Right lobe of the thyroid measures 5.7 x 1.6 x 1.5 cm and left lobe 5.2 x 1.5 x 1.2 cm. 3 tiny hypoechoic nodules are scattered throughout each lobe, maximum diameter on the right is 3 mm and on the left 2 mm. No other abnormality is seen. IMPRESSION: There are 3 tiny hypoechoic nodules in each lobe measuring up to 3 mm in diameter. These are not felt to be clinically significant. <Electronically signed by Andres Prather > 12/27/20 [id number]
== END ==
LOC: M RAD 14:46
PROVIDERS: ATTEND Physician Assistant Medical
DX: E06.9 Thyroiditis, unspecified (principal); E04.2 Nontoxic multinodular goiter

== ENCOUNTER → 2021-04-04 | Outpatient (REF) | payer OTHER | LOC: M SFHCADAM 16:11 | PROVIDERS: ATTEND Physician Assistant Medical | DX: R51.9 Headache, unspecified (principal); J34.89 Other specified disorders of nose and nasal sinuses ==

== ENCOUNTER 2021-05-01 23:21 | Emergency (ER) | payer OTHER ==
[~2021-05-01] VITALS: Ht 172.7 cm; Wt 135.4 kg
[2021-05-01] MEDS ORDERED: RIZA5TAB2 (23:40)
[2021-05-02] MEDS ORDERED: NS 1,000 ML IV ONE (00:10)
[2021-05-02] MEDS ORDERED: KETOROLAC 30 MG/ML 1ML VIAL IV ONE (00:10)
[2021-05-02] MEDS ORDERED: ONDANSETRON 4MG/2ML VIAL IV ONE (00:10)
[2021-05-02 01:05] LABS: BASO # 0.1 10^3/uL (0.0-0.2); BASO % 0.5 % (0.0-1.0); EOS # 0.1 10^3/uL (0.0-0.5); HEMATOCRIT 43.1 % (36.0-47.0); HEMOGLOBIN 14.1 g/dl (12.0-15.5); LYMPH # 3.7 10^3/uL (1.5-5.0); LYMPH % 37.1 % (24.0-44.0); MEAN CORPUSCULAR HGB CONC 32.7 g/dl (32.0-36.5); MEAN CORPUSCULAR VOLUME 85.7 fl (80.0-96.0); MONO # 0.6 10^3/uL (0.0-0.8); MONO % 6.3 % (2.0-8.0); NEUTROPHILS # 5.4 10^3/uL (1.5-8.5); NEUTROPHILS % 54.8 % (36.0-66.0); PLATELET COUNT, AUTOMATED 308 10^3/uL (150-450); RED BLOOD COUNT 5.03 10^6/uL (4.00-5.40); WHITE BLOOD COUNT 9.9 10^3/uL (4.0-10.0)
[2021-05-02] MEDS ORDERED: NORCO, ANEXSIA 5/325MG TABLET (HYDROcodone/ACETAMINOPHEN) PO ONE (01:20)
[2021-05-02] MEDS ORDERED: METOCLOPRAMIDE INJ 10MG/2ML VIAL (J2765 PER 1) IV ONE (01:20)
[2021-05-02 01:32] LABS: ALBUMIN 4.1 GM/DL (3.2-5.2); ALT/SGPT 42 U/L (12-78); BILIRUBIN,DIRECT < 0.1 MG/DL (0.0-0.2); BILIRUBIN,TOTAL 0.3 MG/DL (0.2-1.0); BLOOD UREA NITROGEN 10 MG/DL (7-18); CALCIUM LEVEL 9.2 MG/DL (8.5-10.1); CARBON DIOXIDE LEVEL 26 MEQ/L (21-32); CHLORIDE LEVEL 107 MEQ/L (98-107); GLOMERULAR FILTRATION RATE > 60.0 (>60); GLUCOSE, FASTING 115 MG/DL (70-100); LIPASE 107 U/L (73-393); SODIUM LEVEL 140 MEQ/L (136-145); TOTAL PROTEIN 7.2 GM/DL (6.4-8.2)
[2021-05-02] MEDS ORDERED: TAMSULOSIN 0.4 MG CAP PO ONE (01:40)
[2021-05-02] MEDS ORDERED: KETO10TAB PO (01:46)
[2021-05-02] MEDS ORDERED: ONDA4TAB6 PO (01:46)
[2021-05-02] MEDS ORDERED: FLOM0.4C39 PO (01:46)
[2021-05-02 01:50] VITALS: BP 144/66
== END 2021-05-02 02:00 | disposition home or self-care (01) ==
LOC: M ED 23:21
DX: N21.1 Calculus in urethra (principal); Z79.899 Other long term (current) drug therapy; Z88.0 Allergy status to penicillin
CPT/HCPCS: 74176; 80048; 80076; 81001; 83690; 84702; 85025; 96374; 96375; 99284; J1885; J2405; J2765

== ENCOUNTER → 2021-11-19 | Outpatient (CLI) | payer OTHER ==
[~2021-11-19] MED LIST changes: +FLOM0.4C39 PO; +KETO10TAB PO; +RIZA5TAB2
== END ==
LOC: M RAD 13:32
PROVIDERS: ATTEND Obstetrics & Gynecology
DX: N94.4 Primary dysmenorrhea (principal)

== ENCOUNTER → 2021-11-22 | Outpatient (CLI) | payer OTHER ==
[2021-11-23 15:00] LABS: FREE T4 1.06 NG/DL (0.76-1.46); THYROID STIMULATING HORMONE 3.1 uIU/ML (0.358-3.740)
== END ==
LOC: M WUC 15:02
PROVIDERS: ATTEND Nurse Practitioner Family
DX: R94.6 Abnormal results of thyroid function studies (principal)

== ENCOUNTER → 2022-08-05 | Outpatient (REF) | payer OTHER ==
[~2022-08-05] MED LIST changes: -MAXA10TA14; +RIZA10TA64
[2022-08-05 21:45] LABS: APPEARANCE, URINE HAZY (CLEAR); BACTERIA, URINE AUTO NEGATIVE (NEGATIVE); BILIRUBIN, URINE AUTO NEGATIVE (NEGATIVE); BLOOD, URINE BLOOD 1+ (NEGATIVE); COLOR, URINE YELLOW (YELLOW); GLUCOSE, URINE (UA) AUTO NEGATIVE (NEGATIVE); KETONE, URINE AUTO NEGATIVE (NEGATIVE); LEUKOCYTE ESTERASE, URINE AUTO 2+ (NEGATIVE); NITRITE, URINE AUTO NEGATIVE (NEGATIVE); PROTEIN, URINE AUTO NEGATIVE (NEGATIVE); RBC, URINE AUTO 1 /HPF (0-3); SQUAMOUS EPITHELIAL CELL UR AU 2 /HPF (0-6); UROBILINOGEN, URINE AUTO 0.2 mg/dL (0.0-2.0); WBC, URINE AUTO 12 /HPF (0-3)
== END ==
LOC: M LAB REF 21:00
PROVIDERS: ATTEND Physician Assistant Medical
DX: N39.0 Urinary tract infection, site not specified (principal)

== ENCOUNTER → 2022-09-12 | Outpatient (REF) | payer OTHER ==
[2022-09-12 21:30] LABS: APPEARANCE, URINE CLOUDY (CLEAR); BACTERIA, URINE AUTO 1+ (NEGATIVE); BILIRUBIN, URINE AUTO NEGATIVE (NEGATIVE); BLOOD, URINE BLOOD NEGATIVE (NEGATIVE); COLOR, URINE YELLOW (YELLOW); GLUCOSE, URINE (UA) AUTO NEGATIVE (NEGATIVE); KETONE, URINE AUTO NEGATIVE (NEGATIVE); LEUKOCYTE ESTERASE, URINE AUTO 3+ (NEGATIVE); MUCUS, URINE MODERATE (NEGATIVE); NITRITE, URINE AUTO NEGATIVE (NEGATIVE); PROTEIN, URINE AUTO 1+ mg/dL (NEGATIVE); RBC, URINE AUTO 2 /HPF (0-3); SQUAMOUS EPITHELIAL CELL UR AU 9 /HPF (0-6); UROBILINOGEN, URINE AUTO 0.2 mg/dL (0.0-2.0); WBC, URINE AUTO 30 /HPF (0-3)
== END ==
LOC: M LAB REF 20:55
PROVIDERS: ATTEND Physician Assistant
DX: N39.0 Urinary tract infection, site not specified (principal)

== ENCOUNTER 2022-09-29 07:00 | Emergency (ER) | payer OTHER ==
[~2022-09-29] VITALS: Ht 172.7 cm; Wt 149.3 kg
[2022-09-29] MEDS ORDERED: BENZONATATE 100MG CAPSULE PO ONE (08:00)
[2022-09-29] MEDS ORDERED: NS 1,000 ML IV ONE (08:00)
[2022-09-29] MEDS ORDERED: ALBUTEROL SULFATE 2.5MG/0.5ML INH NEB SOLN NEB ONE (08:00)
[2022-09-29] MEDS ORDERED: KETOROLAC 30 MG/ML 1ML VIAL IV ONE (08:00)
[2022-09-29] MEDS ORDERED: METOCLOPRAMIDE INJ 10MG/2ML VIAL IV ONE (08:00)
[2022-09-29 08:12] LABS: RSV AMPLIFICATION NEGATIVE (NEGATIVE)
[2022-09-29 08:51] LABS: BASO % 0.3 % (0.0-1.0); EOS % 0.3 % (0.0-3.0); HEMATOCRIT 44.4 % (36.0-47.0); HEMOGLOBIN 14.3 g/dl (12.0-15.5); LYMPH # 0.8 10^3/uL (1.5-5.0); LYMPH % 13.3 % (24.0-44.0); MEAN CORPUSCULAR HEMOGLOBIN 27.9 pg (27.0-33.0); MEAN CORPUSCULAR HGB CONC 32.2 g/dl (32.0-36.5); MEAN CORPUSCULAR VOLUME 86.5 fl (80.0-96.0); MONO # 0.5 10^3/uL (0.0-0.8); MONO % 7.8 % (2.0-8.0); NEUTROPHILS # 4.6 10^3/uL (1.5-8.5); NEUTROPHILS % 78.1 % (36.0-66.0); PLATELET COUNT, AUTOMATED 279 10^3/uL (150-450); RED BLOOD COUNT 5.13 10^6/uL (4.00-5.40); WHITE BLOOD COUNT 5.9 10^3/uL (4.0-10.0)
[2022-09-29 09:08] LABS: ERYTHROCYTE SEDIMENTATION RATE 16 mm/hr (0-20)
[2022-09-29] MEDS ORDERED: MUCI1TAB16 PO (10:20)
[2022-09-29] MEDS ORDERED: MACR100C43 PO (10:20)
[2022-09-29] MEDS ORDERED: ALBU8.5H INH (10:20)
[2022-09-29] MEDS ORDERED: BENZ200C70 PO (10:20)
[2022-09-29 10:26] VITALS: BP 123/74; TEMP 99.3; O2SAT 97
[2022-09-29 12:45] LABS: GC DNA AMPLIFICATION NEGATIVE (NEGATIVE)
== END 2022-09-29 10:47 | disposition home or self-care (01) ==
LOC: M ED 07:00
DX: R05.9 Cough, unspecified (principal); R51.9 Headache, unspecified; R30.0 Dysuria; Z79.899 Other long term (current) drug therapy; Z88.0 Allergy status to penicillin
CPT/HCPCS: 71046; 80047; 81000; 81015; 83605; 84702; 85025; 85652; 86140; 87086; 87631; 87661; 87810; 87850; 94640; 96361; 96374; 96375; 99284; J1885; J2765

== ENCOUNTER → 2022-12-23 | Outpatient (CLI) | payer OTHER ==
[~2022-12-23] MED LIST changes: +ALBU8.5H INH; +BENZ200C70 PO; +MACR100C43 PO; +MUCI1TAB16 PO
== END ==
LOC: M WHC 06:47
PROVIDERS: ATTEND Nurse Practitioner Family
DX: N92.0 Excessive and frequent menstruation with regular cycle (principal)

== ENCOUNTER 2023-05-22 20:18 | Emergency (ER) | payer OTHER ==
[~2023-05-22] VITALS: Ht 171.4 cm; Wt 154.9 kg
[2023-05-22] MEDS ORDERED: KETOROLAC 30 MG/ML 1ML VIAL IV ONE (21:05)
[2023-05-22] MEDS ORDERED: ONDANSETRON 4MG 2ML VIAL IV ONE (21:05)
[2023-05-22 21:44] LABS: BASO % 0.3 % (0.0-1.0); EOS # 0.1 10^3/uL (0.0-0.5); EOS % 0.7 % (0.0-3.0); HEMOGLOBIN 14.8 g/dl (12.0-15.5); LYMPH # 1.8 10^3/uL (1.5-5.0); LYMPH % 25.6 % (24.0-44.0); MEAN CORPUSCULAR HEMOGLOBIN 28.6 pg (27.0-33.0); MEAN CORPUSCULAR HGB CONC 33.6 g/dl (32.0-36.5); MEAN CORPUSCULAR VOLUME 84.9 fl (80.0-96.0); MONO # 0.7 10^3/uL (0.0-0.8); MONO % 9.5 % (2.0-8.0); NEUTROPHILS # 4.6 10^3/uL (1.5-8.5); NEUTROPHILS % 63.8 % (36.0-66.0); PLATELET COUNT, AUTOMATED 304 10^3/uL (150-450); RED BLOOD COUNT 5.18 10^6/uL (4.00-5.40); WHITE BLOOD COUNT 7.1 10^3/uL (4.0-10.0)
[2023-05-22 22:08] LABS: ALBUMIN 3.9 G/DL (3.2-5.2); BILIRUBIN,DIRECT 0.3 MG/DL (<0.4); BILIRUBIN,TOTAL 0.8 MG/DL (0.3-1.2)
[2023-05-22 23:19] LABS: RSV AMPLIFICATION NEGATIVE (NEGATIVE)
[2023-05-22] MEDS ORDERED: ONDA4TAB6 PO (23:51)
[2023-05-23 00:20] VITALS: BP 130/77; TEMP 97.3; O2SAT 97
== END 2023-05-23 00:29 | disposition home or self-care (01) ==
LOC: M ED 05-23
DX: R11.2 Nausea with vomiting, unspecified (principal); R19.7 Diarrhea, unspecified; Z87.442 Personal history of urinary calculi; Z88.0 Allergy status to penicillin; Z79.83 Long term (current) use of bisphosphonates; Z79.811 Long term (current) use of aromatase inhibitors; Z79.899 Other long term (current) drug therapy
CPT/HCPCS: 74176; 80047; 80076; 81001; 83690; 84702; 85025; 87631; 96374; 99284; J1885; J2405

== ENCOUNTER → 2023-08-18 | Outpatient (CLI) | payer OTHER | LOC: M ADAMS 09:36 | PROVIDERS: ATTEND Ophthalmology Retina Specialist | DX: H30.92 Unspecified chorioretinal inflammation, left eye (principal) ==

== ENCOUNTER → 2023-08-18 | Outpatient (REF) | payer OTHER ==
[2023-08-18 13:27] LABS: BASO % 0.5 % (0.0-1.0); EOS # 0.1 10^3/uL (0.0-0.5); EOS % 1.5 % (0.0-3.0); HEMATOCRIT 44.5 % (36.0-47.0); HEMOGLOBIN 14.6 g/dl (12.0-15.5); LYMPH # 1.9 10^3/uL (1.5-5.0); LYMPH % 31.2 % (24.0-44.0); MEAN CORPUSCULAR HEMOGLOBIN 28.4 pg (27.0-33.0); MEAN CORPUSCULAR HGB CONC 32.8 g/dl (32.0-36.5); MEAN CORPUSCULAR VOLUME 86.6 fl (80.0-96.0); MONO # 0.4 10^3/uL (0.0-0.8); MONO % 6.7 % (2.0-8.0); NEUTROPHILS # 3.7 10^3/uL (1.5-8.5); NEUTROPHILS % 59.9 % (36.0-66.0); PLATELET COUNT, AUTOMATED 325 10^3/uL (150-450); RED BLOOD COUNT 5.14 10^6/uL (4.00-5.40); WHITE BLOOD COUNT 6.1 10^3/uL (4.0-10.0)
[2023-08-18 13:47] LABS: C REACTIVE PROTEIN QUANTITATIV < 0.40 MG/DL (<1.0)
[2023-08-18 13:49] LABS: ALBUMIN 3.7 G/DL (3.2-5.2); ALKALINE PHOSPHATASE 53 U/L (46-116); ALT/SGPT 37 U/L (7.0-40); AST/SGOT 25 U/L (<34); BILIRUBIN,TOTAL 0.6 MG/DL (0.3-1.2); BLOOD UREA NITROGEN 7 MG/DL (9-23); CALCIUM LEVEL 9.2 MG/DL (8.5-10.1); CARBON DIOXIDE LEVEL 25 MMOL/L (20-31); CHLORIDE LEVEL 108 MMOL/L (98-107); CREATININE FOR GFR 0.59 MG/DL (0.55-1.30); GLOMERULAR FILTRATION RATE > 60.0 (>60); GLUCOSE, FASTING 105 MG/DL (60-100); POTASSIUM SERUM 4.2 MMOL/L (3.5-5.1); SODIUM LEVEL 140 MMOL/L (136-145); THYROID STIMULATING HORMONE 3.495 uIU/ML (0.55-4.78); TOTAL 25(OH) VITAMIN D 11.7 NG/ML (20.0-100.0); TOTAL PROTEIN 6.5 G/DL (5.7-8.2)
[2023-08-18 13:50] LABS: VITAMIN B12 LEVEL 291 PG/ML (211-911)
[2023-08-18 13:51] LABS: FREE T4 1.15 NG/DL (0.89-1.76)
== END ==
LOC: M SFHCADAM 09:22
PROVIDERS: ATTEND Physician Assistant Medical
DX: N92.0 Excessive and frequent menstruation with regular cycle (principal); M62.838 Other muscle spasm; M54.41 Lumbago with sciatica, right side; H47.10 Unspecified papilledema

== ENCOUNTER → 2023-08-18 | Outpatient (CLI) | payer OTHER | LOC: M ADAMS 09:34 | PROVIDERS: ATTEND Physician Assistant Medical | DX: M54.41 Lumbago with sciatica, right side (principal) ==

== ENCOUNTER → 2024-03-22 | Outpatient (REF) | payer OTHER ==
[~2024-03-22] MED LIST changes: +ONDA-282 PO; -ONDA4TAB6 PO
== END ==
LOC: M LAB REF 16:23
PROVIDERS: ATTEND Physician Assistant Medical
DX: J02.9 Acute pharyngitis, unspecified (principal)

== ENCOUNTER → 2024-04-27 | Outpatient (REF) | payer OTHER ==
[2024-04-27 16:28] LABS: APPEARANCE, URINE CLEAR (CLEAR); BACTERIA, URINE AUTO NEGATIVE (NEGATIVE); BILIRUBIN, URINE AUTO NEGATIVE (NEGATIVE); BLOOD, URINE BLOOD NEGATIVE (NEGATIVE); COLOR, URINE YELLOW (YELLOW); GLUCOSE, URINE (UA) AUTO NEGATIVE (NEGATIVE); KETONE, URINE AUTO NEGATIVE (NEGATIVE); LEUKOCYTE ESTERASE, URINE AUTO NEGATIVE (NEGATIVE); MUCUS, URINE SMALL (NEGATIVE); NITRITE, URINE AUTO NEGATIVE (NEGATIVE); PROTEIN, URINE AUTO NEGATIVE (NEGATIVE); RBC, URINE AUTO 1 /HPF (0-3); SPECIFIC GRAVITY URINE AUTO 1.013 (1.002-1.035); SQUAMOUS EPITHELIAL CELL UR AU 2 /HPF (0-6); UROBILINOGEN, URINE AUTO 0.2 mg/dL (0.0-2.0); WBC, URINE AUTO 1 /HPF (0-3)
[2024-04-27 16:33] LABS: BASO # 0.1 10^3/uL (0.0-0.2); BASO % 0.6 % (0.0-1.0); EOS # 0.2 10^3/uL (0.0-0.5); EOS % 2.3 % (0.0-3.0); HEMATOCRIT 43.3 % (36.0-47.0); HEMOGLOBIN 14.6 g/dl (12.0-15.5); LYMPH # 2.6 10^3/uL (1.5-5.0); LYMPH % 31.1 % (24.0-44.0); MEAN CORPUSCULAR HEMOGLOBIN 28.5 pg (27.0-33.0); MEAN CORPUSCULAR HGB CONC 33.7 g/dl (32.0-36.5); MEAN CORPUSCULAR VOLUME 84.4 fl (80.0-96.0); MONO # 0.5 10^3/uL (0.0-0.8); MONO % 6.3 % (2.0-8.0); NEUTROPHILS % 59.5 % (36.0-66.0); PLATELET COUNT, AUTOMATED 262 10^3/uL (150-450); RED BLOOD COUNT 5.13 10^6/uL (4.00-5.40); WHITE BLOOD COUNT 8.4 10^3/uL (4.0-10.0)
[2024-04-27 16:50] LABS: ERYTHROCYTE SEDIMENTATION RATE 7 mm/hr (0-20)
[2024-04-27 16:59] LABS: TOTAL PROTEIN,RANDOM URINE 6.1 MG/DL (0.0-14.0)
[2024-04-27 17:06] LABS: C REACTIVE PROTEIN QUANTITATIV < 0.50 MG/DL (<1.0)
[2024-04-27 18:00] LABS: COMPLEMENT C3 174.8 MG/DL (84.0-160.0); COMPLEMENT C4 32.5 MG/DL (12-36)
[2024-04-27 18:03] LABS: ALBUMIN 4.2 G/DL (3.2-5.2); ALKALINE PHOSPHATASE 55 U/L (35-104); ALT/SGPT 34 U/L (7.0-40); AST/SGOT 19 U/L (<34); BILIRUBIN,TOTAL 0.8 MG/DL (0.3-1.2); BLOOD UREA NITROGEN 11 MG/DL (9-23); CALCIUM LEVEL 9.6 MG/DL (8.5-10.1); CARBON DIOXIDE LEVEL 25 MMOL/L (20-31); CHLORIDE LEVEL 108 MMOL/L (98-107); CREATININE FOR GFR 0.55 MG/DL (0.55-1.30); GLOMERULAR FILTRATION RATE > 60.0 (>60); GLUCOSE, FASTING 90 MG/DL (60-100); SODIUM LEVEL 138 MMOL/L (136-145)
== END ==
LOC: M SFHCRHEU 15:06
PROVIDERS: ATTEND Internal Medicine Rheumatology
DX: R76.8 Other specified abnormal immunological findings in serum (principal); H53.9 Unspecified visual disturbance; R52 Pain, unspecified; R53.83 Other fatigue

== ENCOUNTER 2024-05-23 17:24 | Emergency (ER) | payer OTHER ==
[~2024-05-23] VITALS: Ht 172.7 cm; Wt 152.7 kg
[2024-05-24] MEDS: predniSONE 20 MG TAB PO ONE (02:33)
[2024-05-24] MEDS: FAMOTIDINE 20 MG TAB PO ONE (02:33)
[2024-05-24] MEDS: diphenhydrAMINE 50MG CAP PO ONE (02:33)
[2024-05-24] MEDS ORDERED: BENA25CA4 PO (02:37)
[2024-05-24] MEDS ORDERED: PRED20TA PO (02:37)
[2024-05-24] MEDS ORDERED: DOXY100C82 PO (02:37)
[2024-05-24] MEDS ORDERED: PEPC1TAB5 PO (02:37)
[2024-05-24] MEDS: DOXYCYCLINE HYCLATE 100MG TABLET PO ONE (02:39)
[2024-05-24 02:43] VITALS: BP 136/77; TEMP 98.1; O2SAT 98
== END 2024-05-24 02:44 | disposition home or self-care (01) ==
LOC: M ED 17:24
DX: T78.40XA Allergy, unspecified, initial encounter (principal); Z88.0 Allergy status to penicillin; Z79.2 Long term (current) use of antibiotics; Z79.52 Long term (current) use of systemic steroids; Z79.899 Other long term (current) drug therapy
CPT/HCPCS: 99284; J7512

== ENCOUNTER → 2024-05-28 | Outpatient (REF) | payer OTHER ==
[~2024-05-28] MED LIST changes: +BENA25CA4 PO; +DOXY100C82 PO; +PEPC1TAB5 PO; +PRED20TA PO
== END ==
LOC: M LAB REF 17:15
PROVIDERS: ATTEND Physician Assistant Medical
DX: N89.8 Other specified noninflammatory disorders of vagina (principal)

== ENCOUNTER → 2024-06-02 | Outpatient (CLI) | payer OTHER | LOC: M PLALAB 08:14 | PROVIDERS: ATTEND Physician Assistant Medical | DX: E55.9 Vitamin D deficiency, unspecified (principal) ==

== ENCOUNTER → 2024-11-14 | Outpatient (CLI) | payer OTHER ==
[~2024-11-14] MED LIST changes: +DOXY-442 PO; -DOXY100C82 PO; -FLOM0.4C39 PO; +TAMS-18 PO
[2024-11-14 10:54] LABS: ALT/SGPT 30 U/L (7.0-40); AST/SGOT 20 U/L (<34); CALCIUM LEVEL 9.0 MG/DL (8.5-10.1); CARBON DIOXIDE LEVEL 22 MMOL/L (20-31); CHLORIDE LEVEL 107 MMOL/L (98-107); CREATININE FOR GFR 0.60 MG/DL (0.55-1.30); GLOMERULAR FILTRATION RATE > 90.0 (>60); POTASSIUM SERUM 4.1 MMOL/L (3.5-5.1); SODIUM LEVEL 143 MMOL/L (136-145)
== END ==
LOC: M PLALAB 09:07
PROVIDERS: ATTEND Nurse Practitioner Family
DX: E66.9 Obesity, unspecified (principal)

== ENCOUNTER → 2025-03-15 | Outpatient (CLI) | payer OTHER | LOC: M PLAIMG 09:03 | PROVIDERS: ATTEND Nurse Practitioner Family | DX: R10.9 Unspecified abdominal pain (principal); N20.0 Calculus of kidney ==